=== PATIENT | female | born 1990 | race Hispanic/Latino ===

== ENCOUNTER 2018-03-25 11:39 | Emergency (ER) | payer SELFPAY ==
--- NOTE | 2018-03-25 12:46 | RAD REPORT ---
EXAM DESCRIPTION: RAD - Chest Single View - 03/25/2018 12:38 pm CLINICAL HISTORY: CHEST PAIN Chest pain. COMPARISON: CHEST PA AND LAT 2 VIEW dated 09/03/2011; CHEST SINGLE VIEW dated 03/30/2011; CHEST PA AND L AT 2 VIEW dated 02/12/2010 FINDINGS: Portable technique limits examination quality. The lungs are grossly clear. The heart is normal in size. No displaced fractures. IMPRESSION: No acute intrathoracic process suspected.
[2018-03-25 12:53] LABS: Absolute Lymphocytes (CBC) 1.7 K/uL (0.7-4.9); Absolute Monocytes 0.2 K/uL (0.1-1.3); Absolute Neutrophil 4.1 K/uL (1.8-8.0); Basophils % 1.3 % (0-1.3); Eosinophils % 1.5 % (0-4.4); Hematocrit 40.7 % (36.0-45.0); Lymphocytes % 26.8 % (15.3-44.8); MCH 31.8 pg (27.0-35.0); MCV 93.1 fL (80-100); MPV 8.6 fL (7.6-11.3); Monocytes % 3.8 % (3.3-12.3); RBC Red Blood Cell Count 4.37 M/uL (3.86-4.86)
[2018-03-25 12:59] LABS: Urine Blood NEGATIVE (NEG); Urine Glucose NEGATIVE (NEG); Urine Protein NEGATIVE (NEG); Urine pH 5.5 (5.0-7.0)
[2018-03-25 13:05] LABS: BUN Blood Urea Nitrogen 12 mg/dL (7-18); Bicarbonate 29 mmol/L (21-32); CKMB Creatine Kinase MB < 1.0 ng/mL (0.3-3.6); Creatine Phosphokinase 48 U/L (26-192); Glucose Level 113 mg/dL (74-106); Magnesium 2.1 mg/dL (1.8-2.4); Potassium 3.6 mmol/L (3.5-5.1); Sodium Level 142 mmol/L (136-145)
--- NOTE | 2018-03-25 14:18 | ER ---
Nurse's Notes [facility] Name: Zaria Cleary Age: 27 yrs Sex: Female : 1990 Arrival Date: 03/25/2018 Time: 11:41 Bed 17 Private MD: None, None Diagnosis: Chest pain, unspecified Presentation: 03/25 11:52 Presenting complaint: Patient states: She has been having intermittent chest pain for aj1 the past 5 days. She'll have episodes and then they resolve on their own, so she hasn't done anything about them in the past, but today is the 3rd day in a row she has been having an episode of chest pain so she became concerned. Patient describes her pain as cramping, with pressure. Reports tingling in both of her hands and shortness of breath whenever she has chest pain. Transition of care: patient was not received from another setting of care. Onset of symptoms was March 25, 2018. Risk Assessment: Do you want to hurt yourself or someone else? Patient reports no desire to harm self or others. Initial Sepsis Screen: Does the patient meet any 2 criteria? No. Patient's initial sepsis screen is negative. Does the patient have a suspected source of infection? No. Patient's initial sepsis screen is negative. Care prior to arrival: None. 11:52 Method Of Arrival: Ambulatory aj1 11:52 Acuity: MEL 3 aj1 Triage Assessment: 11:58 General: Appears in no apparent distress. comfortable, Behavior is calm, cooperative, aj1 appropriate for age. Pain: Complains of pain in mid-sternal area Pain does not radiate. Pain currently is 7 out of 10 on a pain scale. Quality of pain is described as crampy, pressure, Is intermittent. Neuro: Level of Consciousness is awake, alert, obeys commands. Cardiovascular: Reports chest pain, shortness of breath, Patient's skin is warm and dry. Respiratory: Airway is patent Respiratory effort is even, unlabored, Respiratory pattern is regular, symmetrical. 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 - Social history:: Smoking status: Patient uses tobacco products, denies chronic smoking, but will smoke occasionally. - Ebola Screening: : Patient denies travel to an Ebola-affected area in the 21 days before illness onset. Screenin:05 Abuse screen: Denies threats or abuse. Nutritional screening: No deficits noted. rb1 Tuberculosis screening: No symptoms or risk factors identified. Fall Risk None identified. Assessment: 12:05 General: Appears distressed, slender, Behavior is anxious, crying, Denies fever. Pain: rb1 Complains of pain in mid-sternal area Pain currently is 7 out of 10 on a pain scale. Pain began x 5 days, the last three days symptoms have gotten worse. Neuro: Level of Consciousness is awake, alert, obeys commands, Oriented to person, place, time, situation. Cardiovascular: Capillary refill < 3 seconds is brisk in bilateral fingers. Respiratory: Airway is patent Respiratory effort is even, unlabored, Respiratory pattern is regular, symmetrical. GI: No signs and/or symptoms were reported involving the gastrointestinal system. : No signs and/or symptoms were reported regarding the genitourinary system. Derm: Skin is dry, Skin is normal, Skin temperature is warm. 13:00 Reassessment: Patient appears in no apparent distress at this time. No changes from rb1 previously documented assessment. 14:00 Reassessment: Patient appears in no apparent distress at this time. Patient and/or rb1 family updated on plan of care and expected duration. Pain level reassessed. Patient is alert, oriented x 3, equal unlabored respirations, skin warm/dry/pink. 14:40 Reassessment: Discharge pending due to shot time. rb1 15:00 Reassessment: Patient appears in no apparent distress at this time. No changes from rb1 previously documented assessment. Vital Signs: 11:58 BP 120 / 93; Pulse 86; Resp 20; Temp 98.4; Pulse Ox 100% on R/A; Height 5 ft. 5 in. aj1 (165.10 cm) (R); 12:30 BP 119 / 80; Pulse 79; Resp 20; Pulse Ox 100% on R/A; rb1 13:30 BP 109 / 69; Pulse 65; Resp 20; Pulse Ox 99% on R/A; rb1 14:30 BP 105 / 66; Pulse 67; Resp 17; Pulse Ox 98% on R/A; rb1 15:00 BP 106 / 67; Pulse 65; Resp 14; Pulse Ox 99% on R/A; rb1 ED Course: 11:41 Patient arrived in ED. sb2 11:41 None, None is Private Physician. sb2 11:58 Triage completed. aj1 11:58 Arm band placed on. aj1 12:01 Aide Ogden FNP-C is [facility]. kb 12:01 Agus Sena MD is Attending Physician. kb 12:05 Patient has correct armband on for positive identification. Placed in gown. Bed in low rb1 position. Call light in reach. Side rails up X 1. customer service consultant on. Pulse ox on. NIBP on. Warm blanket given. 12:05 Patient maintains SpO2 saturation greater than 95% on room air. rb1 12:09 Nimco Alba, RN is Primary Nurse. rb1 12:10 Urine collected: clean catch specimen, clear, yfn colored, Amount Voided: 100mL. jp3 12:14 EKG done, by optical technician. reviewed by Aide VALLES. at1 12:30 Inserted saline lock: 22 gauge in right antecubital area, using aseptic technique. rb1 Blood collected. 12:37 X-ray completed. Portable x-ray completed in exam room. Patient tolerated procedure ka well. 12:38 XRAY Chest (1 view) In Process Unspecified. EDMS 15:00 No provider procedures requiring assistance completed. IV discontinued, intact, rb1 bleeding controlled, No redness/swelling at site. Pressure dressing applied. Administered Medications: 14:40 Drug: TORadol 30 mg Route: IVP; Site: right antecubital; rb1 15:00 Follow up: Response: No adverse reaction; Pain is decreased rb1 14:40 Drug: ProTONIX 40 mg Route: IVP; Site: right antecubital; rb1 15:00 Follow up: Response: No adverse reaction rb1 Outcome: 14:17 Discharge ordered by . kb 15:00 Discharged to home ambulatory, with family. rb1 15:00 Condition: stable 15:00 Discharge instructions given to patient, Instructed on discharge instructions, follow up and referral plans. Demonstrated understanding of instructions, follow-up care, medications, Prescriptions given X none 15:11 Patient left the ED. rb1 Signatures: Dispatcher [employer] EDOK Aide Ogden, COMPUTER ANIMATOR-C COMPUTER ANIMATOR-Ckb Ivana Dawson, RN RN aj1 Gracy Angel, rivet hammer machine operator EKG Tat1 Nimco Alba, RN RN rb1 Radha Ryder Sheri sb2 Kiran Lawson jp3 Corrections: (The following items were deleted from the chart) 15:07 15:07 Reassessment: Patient appears in no apparent distress at this time. No changes rb1 from previously documented assessment. rb1
--- NOTE | 2018-03-25 14:18 | EDPHYS ---
Physician Documentation [facility] Name: Zaria Cleary Age: 27 yrs Sex: Female : 1990 Arrival Date: 03/25/2018 Time: 11:41 Bed 17 Private MD: None, None ED Physician Agus Sena HPI: 03/25 12:32 This 27 yrs old Female presents to ER via Ambulatory with complaints of Chest kb Pain, Chest Tightness. 12:34 The patient or guardian reports chest pain that is located primarily in the chest kb diffusely. The pain does not radiate. Associated signs and symptoms: Pertinent positives: nausea, shortness of breath. The chest pain is described as squeezing, tightness. Duration: The patient or guardian reports multiple episodes. Modifying factors: The symptoms are alleviated by nothing. the symptoms are aggravated by nothing. Severity of pain: At its worst the pain was moderate in the emergency department the pain is unchanged. The patient has experienced similar episodes in the past. The patient has not recently seen a physician. Pt states she has had these symptoms on and off for the last 5 years, but they have been constant for the last 3 days. . 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 - Social history:: Smoking status: Patient uses tobacco products, denies chronic smoking, but will smoke occasionally. - Ebola Screening: : Patient denies travel to an Ebola-affected area in the 21 days before illness onset. ROS: 12:32 Constitutional: Negative for fever, chills, and weight loss, Abdomen/GI: Negative for kb abdominal pain, nausea, vomiting, diarrhea, and constipation, Back: Negative for injury and pain, : Negative for injury, bleeding, discharge, and swelling, MS/Extremity: Negative for injury and deformity, Skin: Negative for injury, rash, and discoloration, Neuro: Negative for headache, weakness, numbness, tingling, and seizure. 12:32 Cardiovascular: Positive for chest pain, Negative for edema, orthopnea, palpitations, paroxysmal nocturnal dyspnea. 12:32 Respiratory: Positive for shortness of breath, Negative for cough, dyspnea on exertion, hemoptysis, orthopnea, pleurisy, sputum production, wheezing. Exam: 12:32 Head/Face: Normocephalic, atraumatic. Chest/axilla: Normal chest wall appearance and kb motion. Nontender with no deformity. No lesions are appreciated. Cardiovascular: Regular rate and rhythm with a normal S1 and S2. No gallops, murmurs, or rubs. Normal PMI, no JVD. No pulse deficits. Respiratory: Lungs have equal breath sounds bilaterally, clear to auscultation and percussion. No rales, rhonchi or wheezes noted. No increased work of breathing, no retractions or nasal flaring. Abdomen/GI: Soft, non-tender, with normal bowel sounds. No distension or tympany. No guarding or rebound. No evidence of tenderness throughout. Skin: Warm, dry with normal turgor. Normal color with no rashes, no lesions, and no evidence of cellulitis. MS/ Extremity: Pulses equal, no cyanosis. Neurovascular intact. Full, normal range of motion. Neuro: Awake and alert, GCS 15, oriented to person, place, time, and situation. Cranial nerves II-XII grossly intact. Motor strength 5/5 in all extremities. Sensory grossly intact. Cerebellar exam normal. Normal gait. 12:32 Constitutional: The patient appears alert, awake, tearful Vital Signs: 11:58 BP 120 / 93; Pulse 86; Resp 20; Temp 98.4; Pulse Ox 100% on R/A; Height 5 ft. 5 in. aj1 (165.10 cm) (R); 12:30 BP 119 / 80; Pulse 79; Resp 20; Pulse Ox 100% on R/A; rb1 13:30 BP 109 / 69; Pulse 65; Resp 20; Pulse Ox 99% on R/A; rb1 14:30 BP 105 / 66; Pulse 67; Resp 17; Pulse Ox 98% on R/A; rb1 15:00 BP 106 / 67; Pulse 65; Resp 14; Pulse Ox 99% on R/A; rb1 MDM: 12:05 Patient medically screened. kb 12:32 Data reviewed: vital signs, nurses notes. Data interpreted: Pulse oximetry: on room air kb is 100 %. Interpretation: normal. 14:17 Counseling: I had a detailed discussion with the patient and/or guardian regarding: the kb historical points, exam findings, and any diagnostic results supporting the discharge/admit diagnosis, lab results, radiology results, the need for outpatient follow up, a family practitioner, to return to the emergency department if symptoms worsen or persist or if there are any questions or concerns that arise at home. 03/25 12:17 Order name: Ckmb; Complete Time: 13:11 kb 03/25 12:17 Order name: CPK; Complete Time: 13:11 kb 03/25 12:17 Order name: Basic Metabolic Panel; Complete Time: 13:11 kb 03/25 12:17 Order name: CBC with Diff; Complete Time: 12:54 kb 03/25 12:17 Order name: Magnesium; Complete Time: 13:11 kb 03/25 12:17 Order name: Troponin (emerg Dept Use Only); Complete Time: 13:11 kb 03/25 12:17 Order name: Urine Test (obtain specimen); Complete Time: 14:35 kb 03/25 12:17 Order name: XRAY Chest (1 view); Complete Time: 12:48 kb 03/25 12:17 Order name: EKG; Complete Time: 12:18 kb 03/25 12:17 Order name: D-Dimer; Complete Time: 13:11 kb 03/25 12:21 Order name: Urine Dipstick--Ancillary (enter results); Complete Time: 13:11 eb 03/25 12:21 Order name: Urine --Ancillary (enter results); Complete Time: 13:11 eb 03/25 12:17 Order name: Cardiac monitoring; Complete Time: 14:34 kb 03/25 12:17 Order name: EKG - Nurse/Tech; Complete Time: 14:34 kb 03/25 12:17 Order name: IV Saline Lock; Complete Time: 14:34 kb 03/25 12:17 Order name: Labs collected and sent; Complete Time: 14:34 kb 03/25 12:17 Order name: O2 Per Protocol; Complete Time: 14:34 kb 03/25 12:17 Order name: O2 Sat Monitoring; Complete Time: 14:34 kb 03/25 12:17 Order name: Urine Dipstick-Ancillary (obtain specimen); Complete Time: 14:35 kb Administered Medications: 14:40 Drug: TORadol 30 mg Route: IVP; Site: right antecubital; rb1 15:00 Follow up: Response: No adverse reaction; Pain is decreased rb1 14:40 Drug: ProTONIX 40 mg Route: IVP; Site: right antecubital; rb1 15:00 Follow up: Response: No adverse reaction rb1 Disposition: 16:51 Co-signature as Attending Physician, Agus Sena MD. rn Disposition: 03/25/18 14:17 Discharged to Home. Impression: Chest pain, unspecified. - Condition is Stable. - Discharge Instructions: Nonspecific Chest Pain, [id number]. - Medication Reconciliation Form, Thank You Letter, Antibiotic Education, Prescription Opioid Use, Work release form form. - Follow up: Emergency Department; When: As needed; Reason: Worsening of condition. Follow up: Private Physician; When: 2 - 3 days; Reason: Recheck today's complaints, Continuance of care, Re-evaluation by your physician. Signatures: Dispatcher [employer] EDTN Aide Ogden, JUNIOR AUTOMATION ENGINEER-C JUNIOR AUTOMATION ENGINEER-Ckb Ivana Dawson RN RN aj1 Agus Sena MD MD rn Barber, Rebecca, RN RN rb1 Corrections: (The following items were deleted from the chart) 15:11 14:17 03/25/2018 14:17 Discharged to Home. Impression: Chest pain, unspecified. rb1 Condition is Stable. Forms are Medication Reconciliation Form, Thank You Letter, Antibiotic Education, Prescription Opioid Use. Follow up: Emergency Department; When: As needed; Reason: Worsening of condition. Follow up: Private Physician; When: 2 - 3 days; Reason: Recheck today's complaints, Continuance of care, Re-evaluation by your physician. kb
[2018-03-25] MEDS ORDERED: PANTOPRAZOLE 40 MG INJ ONE (14:41)
[2018-03-25] MEDS ORDERED: KETOROLAC 30 MG/ML INJ ONE (14:41)
[2018-03-25 15:20] VITALS: TEMP 98.4
[2018-03-25 15:25] VITALS: BP 106/67; O2SAT 99
--- NOTE | 2018-03-25 16:28 | EKG ---
Test Date: 2018-03-25 Test Time: 12:09:04 Social Security Benefits Interviewer: SHERLYN MEASUREMENT RESULTS: Intervals: Rate: 83 HI: 136 QRSD: 84 QT: 356 QTc: 418 [place]: P: 83 HI: 136 QRS: 88 T: 48 INTERPRETIVE STATEMENTS: Normal sinus rhythm with sinus arrhythmia Nonspecific ST abnormality Abnormal ECG No previous ECG available for comparison Electronically Signed On 03-25-18 16:26:00 CDT by Kash Laurent
== END 2018-03-25 15:11 | disposition home or self-care (01) ==
LOC: ER 11:39
DX: R07.9 Chest pain, unspecified (principal); Z72.0 Tobacco use
CPT/HCPCS: 36415; 71045; 80048; 81003; 81025; 82550; 82553; 83735; 84484; 85025; 85379; 93005; 96374; 96375; 99285; C9113

== ENCOUNTER 2018-07-23 22:13 | Emergency (ER) | payer BC, SELFPAY ==
--- OUTSIDE RECORDS SUMMARY | 2018-07-23 22:16 | XMS REPORT ---
:1990 [facility] Address [address] [place] [address] Care Team Providers Name Role Phone Unavailable Unavailable Unavailable Problems This patient has no known problems. Allergies, Adverse Reactions, Alerts This patient has no known allergies or adverse reactions. Medications This patient has no known medications.
[2018-07-23 23:33] LABS: Absolute Lymphocytes (CBC) 2.2 K/uL (0.7-4.9); Absolute Monocytes 0.6 K/uL (0.1-1.3); Absolute Neutrophil 6.5 K/uL (1.8-8.0); Eosinophils % 1.8 % (0-4.4); Hematocrit 40.5 % (36.0-45.0); Lymphocytes % 23.3 % (15.3-44.8); MPV 8.7 fL (7.6-11.3); Monocytes % 6.7 % (3.3-12.3); RBC Red Blood Cell Count 4.35 M/uL (3.86-4.86)
[2018-07-24 00:04] LABS: BUN Blood Urea Nitrogen 9 mg/dL (7-18); Bicarbonate 25 mmol/L (21-32); Glucose Level 88 mg/dL (74-106); HCG, Quantitative 16647 mIU/mL (1-3); Potassium 3.9 mmol/L (3.5-5.1); Sodium Level 136 mmol/L (136-145)
[2018-07-24 00:26] LABS: Urine Blood 3+ (NEG); Urine Glucose NEGATIVE (NEG); Urine Protein NEGATIVE (NEG); Urine Specific Gravity >1.030 (1.005-1.030); Urine pH 5.5 (5.0-7.0)
--- NOTE | 2018-07-24 01:15 | EDPHYS ---
Physician Documentation [facility] Name: Zaria Cleary Age: 27 yrs Sex: Female : 1990 Arrival Date: 07/23/2018 Time: 22:19 Bed 4 Private MD: ED Physician Dylan Matthews HPI: 07/24 00:22 This 27 yrs old Female presents to ER via Ambulatory with complaints of jr8 Vaginal Bleeding. 00:22 The patient presents with vaginal bleeding that is moderate, with clots. Onset: The jr8 symptoms/episode began/occurred acutely, yesterday. Modifying factors: The symptoms are alleviated by nothing, the symptoms are aggravated by nothing. Associated signs and symptoms: The patient has no apparent associated signs or symptoms. Severity of symptoms: At their worst the symptoms were mild, in the emergency department the symptoms are unchanged. The patient is sexually active, reportedly has a single partner, does not use protection during intercourse. The patient's method of control includes nothing. The patient has not experienced similar symptoms in the past. The patient has not recently seen a physician. Patient stated that she had missed her period and is about two weeks late. Now having heavy menstrual cycle with clots. Stated that it is not normally this heavy. Denies any other symptoms . 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 - Social history:: Smoking status: Patient/guardian denies using tobacco. - Ebola Screening: : No symptoms or risks identified at this time. ROS: 07/24 00:22 Eyes: Negative for injury, pain, redness, and discharge, ENT: Negative for injury, jr8 pain, and discharge, Neck: Negative for injury, pain, and swelling, Cardiovascular: Negative for chest pain, palpitations, and edema, Respiratory: Negative for shortness of breath, cough, wheezing, and pleuritic chest pain, Abdomen/GI: Negative for abdominal pain, nausea, vomiting, diarrhea, and constipation, Back: Negative for injury and pain, MS/Extremity: Negative for injury and deformity, Skin: Negative for injury, rash, and discoloration, Neuro: Negative for headache, weakness, numbness, tingling, and seizure. : Positive for vaginal bleeding, menstrual abnormality, missed period. Exam: 00:22 Eyes: Pupils equal round and reactive to light, extra-ocular motions intact. Lids and jr8 lashes normal. Conjunctiva and sclera are non-icteric and not injected. Cornea within normal limits. Periorbital areas with no swelling, redness, or edema. ENT: Nares patent. No nasal discharge, no septal abnormalities noted. Tympanic membranes are normal and external auditory canals are clear. Oropharynx with no redness, swelling, or masses, exudates, or evidence of obstruction, uvula midline. Mucous membranes moist. Neck: Trachea midline, no thyromegaly or masses palpated, and no cervical lymphadenopathy. Supple, full range of motion without nuchal rigidity, or vertebral point tenderness. No Meningismus. Cardiovascular: Regular rate and rhythm with a normal S1 and S2. No gallops, murmurs, or rubs. Normal PMI, no JVD. No pulse deficits. Respiratory: Lungs have equal breath sounds bilaterally, clear to auscultation and percussion. No rales, rhonchi or wheezes noted. No increased work of breathing, no retractions or nasal flaring. Abdomen/GI: Soft, non-tender, with normal bowel sounds. No distension or tympany. No guarding or rebound. No evidence of tenderness throughout. Back: No spinal tenderness. No costovertebral tenderness. Full range of motion. Skin: Warm, dry with normal turgor. Normal color with no rashes, no lesions, and no evidence of cellulitis. MS/ Extremity: Pulses equal, no cyanosis. Neurovascular intact. Full, normal range of motion. Neuro: Awake and alert, GCS 15, oriented to person, place, time, and situation. Cranial nerves II-XII grossly intact. Motor strength 5/5 in all extremities. Sensory grossly intact. Cerebellar exam normal. Normal gait. Vital Signs: 07/23 22:52 BP 127 / 88; Pulse 80; Resp 16; Temp 98.3(O); Pulse Ox 100% on R/A; Weight 61.23 kg; tl2 Height 5 ft. 6 in. (167.64 cm); Pain 4/10; 07/24 00:53 BP 117 / 82; Pulse 72; Resp 18; Pulse Ox 100% on R/A; tl2 07/23 22:52 Body Mass Index 21.79 (61.23 kg, 167.64 cm) 2 MDM: 07/23 22:31 Patient medically screened. [facility] 07/24 01:13 Data reviewed: vital signs, nurses notes, lab test result(s), radiologic studies, [facility] ultrasound. Data interpreted: Pulse oximetry: on room air is 100 %. Interpretation: normal. Counseling: I had a detailed discussion with the patient and/or guardian regarding: the historical points, exam findings, and any diagnostic results supporting the discharge/admit diagnosis, lab results, radiology results, the need for outpatient follow up, an OB/Gyne specialist, to return to the emergency department if symptoms worsen or persist or if there are any questions or concerns that arise at home. 07/23 22:38 Order name: Urine Dipstick--Ancillary (enter results); Complete Time: 00:29 [facility] 07/23 22:38 Order name: Urine --Ancillary (enter results); Complete Time: 00:29 [facility] 07/23 22:42 Order name: Quantitative Hcg; Complete Time: 00:10 [facility] 07/23 22:42 Order name: Abo/rh Typing; Complete Time: 00:10 [facility] 07/23 22:42 Order name: Basic Metabolic Panel; Complete Time: 00:10 [facility] 07/23 22:42 Order name: CBC with Diff; Complete Time: 23:51 [facility] 07/23 22:29 Order name: Urine Test (obtain specimen); Complete Time: 22:36 [facility] 07/23 22:29 Order name: Urine Dipstick-Ancillary (obtain specimen); Complete Time: 22:36 [facility] 07/23 22:42 Order name: IV Saline Lock; Complete Time: 23:01 [facility] 07/23 22:42 Order name: Labs collected and sent; Complete Time: 23:01 [facility] 07/23 22:42 Order name: NPO; Complete Time: 23:02 [facility] 07/23 22:42 Order name: Urine Dipstick-Ancillary (obtain specimen); Complete Time: 22:45 [facility] 07/24 00:11 Order name: Transvaginal OB jr8 Administered Medications: No medications were administered Disposition: 06:44 Co-signature as Attending Physician, Dylan Matthews MD I agree with the assessment and kdr plan of care. Disposition: 07/24/18 01:14 Discharged to Home. Impression: Threatened . - Condition is Stable. - Discharge Instructions: Threatened Miscarriage, Vaginal Bleeding During , First Trimester, Pelvic Rest. - Medication Reconciliation Form, Thank You Letter, Antibiotic Education, Prescription Opioid Use form. - Follow up: Private Physician; When: 2 - 3 days; Reason: If symptoms return, Recheck today's complaints, Continuance of care, Re-evaluation by your physician. - Problem is new. - Symptoms have improved. Signatures: Dispatcher [employer] EDWV Dylan Matthews MD MD kdr Kelly Reina RN RN lp1 Higinio Cutler PA PA jr8 Ryann Hunter RN RN tl2 Corrections: (The following items were deleted from the chart) 01:44 01:14 07/24/2018 01:14 Discharged to Home. Impression: Threatened . Condition lp1 is Stable. Forms are Medication Reconciliation Form, Thank You Letter, Antibiotic Education, Prescription Opioid Use. Follow up: Private Physician; When: 2 - 3 days; Reason: If symptoms return, Recheck today's complaints, Continuance of care, Re-evaluation by your physician. Problem is new. Symptoms have improved. jr8
--- NOTE | 2018-07-24 01:15 | ER ---
Nurse's Notes [facility] Name: Zaria Cleary Age: 27 yrs Sex: Female : 1990 Arrival Date: 07/23/2018 Time: 22:19 Bed 4 Private MD: Diagnosis: Threatened Presentation: 07/23 22:49 Presenting complaint: Patient states: Started having heavy vaginal bleeding started tl2 today around 4:00 pm. Pt LMP was 06/11 and pt has yet to start period for this month. Reports mild abdominal cramping. Transition of care: patient was not received from another setting of care. Onset of symptoms was July 23, 2018 at 16:00. Risk Assessment: Do you want to hurt yourself or someone else? Patient reports no desire to harm self or others. Initial Sepsis Screen: Does the patient meet any 2 criteria? No. Patient's initial sepsis screen is negative. Does the patient have a suspected source of infection? No. Patient's initial sepsis screen is negative. Care prior to arrival: None. 22:49 Method Of Arrival: Ambulatory tl2 22:49 Acuity: MEL 3 tl2 Triage Assessment: 22:52 General: Appears in no apparent distress. uncomfortable, Behavior is calm, cooperative, tl2 appropriate for age. Pain: Complains of pain in suprapubic area. Neuro: Level of Consciousness is awake, alert, obeys commands, Oriented to person, place, time, situation. Cardiovascular: Denies chest pain. Respiratory: Airway is patent Respiratory effort is even, unlabored, Respiratory pattern is regular, symmetrical. : Reports vaginal bleeding that is bright red, with clots, heavy flow. Derm: Skin is pink, warm \T\ dry. 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 - Social history:: Smoking status: Patient/guardian denies using tobacco. - Ebola Screening: : No symptoms or risks identified at this time. Screenin:54 Abuse screen: Denies threats or abuse. Nutritional screening: No deficits noted. tl2 Tuberculosis screening: No symptoms or risk factors identified. Fall Risk None identified. Assessment: 22:52 General: see triage assessment. tl2 07/24 00:54 Reassessment: Patient appears in no apparent distress at this time. Patient and/or tl2 family updated on plan of care and expected duration. Pain level reassessed. Patient is alert, oriented x 3, equal unlabored respirations, skin warm/dry/pink. Vital Signs: 07/23 22:52 BP 127 / 88; Pulse 80; Resp 16; Temp 98.3(O); Pulse Ox 100% on R/A; Weight 61.23 kg; tl2 Height 5 ft. 6 in. (167.64 cm); Pain 4/10; 07/24 00:53 BP 117 / 82; Pulse 72; Resp 18; Pulse Ox 100% on R/A; tl2 07/23 22:52 Body Mass Index 21.79 (61.23 kg, 167.64 cm) tl2 ED Course: 07/23 22:19 Patient arrived in ED. es 22:30 Kelly Reina, RN is Primary Nurse. lp1 22:31 Higinio Cutler PA is PHCP. jr8 22:31 Dylan Matthews MD is Attending Physician. jr8 22:52 Triage completed. tl2 22:52 Arm band placed on right wrist. tl2 23:08 Inserted saline lock: 20 gauge in right antecubital area, using aseptic technique. oe Blood collected. 07/24 01:13 Transvaginal OB US In Process Unspecified. EDMS 01:43 Patient has correct armband on for positive identification. lp1 01:43 No provider procedures requiring assistance completed. IV discontinued, No lp1 redness/swelling at site. Pressure dressing applied. Administered Medications: No medications were administered Outcome: 01:14 Discharge ordered by . jr8 01:44 Discharged to home ambulatory, with friend. lp1 01:44 Condition: good 01:44 Discharge instructions given to patient, Instructed on discharge instructions, follow up and referral plans. Demonstrated understanding of instructions, follow-up care. 01:44 Patient left the ED. lp1 Signatures: Dispatcher [employer] EDOH Khadijah Reilly Laura, RN RN lp1 Higinio Cutler PA PA jr8 Ryann Hunter, RN RN tl2 Duy Gusman
[2018-07-24 02:32] VITALS: TEMP 98.3; O2SAT 100
[2018-07-24 02:33] VITALS: BP 117/82
--- NOTE | 2018-07-24 09:43 | RAD REPORT ---
EXAM DESCRIPTION: US - Transvaginal OB - 07/24/2018 1:13 am CLINICAL HISTORY: Abdominal pain, vaginal bleeding, COMPARISON: None. FINDINGS: A single normal shaped intrauterine gestational sac is identified with yolk sac and pole. No intrauterine hematoma or mass. Heart rate of 117 BPM detected. [place]-rump length corresponds to a 6 week 1 day age. Calculated AUGUSTINE is 03/18/2019. Cervical canal is closed. No suspicious ovarian or adnexal finding. Minimal right ovarian cyst is present. No blood or fluid in the cul de sac. IMPRESSION: Single 6 week 1 day IUP within normal gestational sac. No significant or suspicious adnexal finding.
== END 2018-07-24 01:44 | disposition home or self-care (01) ==
LOC: ER 22:13
DX: O20.0 Threatened abortion (principal); Z3A.01 Less than 8 weeks gestation of pregnancy
CPT/HCPCS: 36415; 76817; 80048; 81003; 81025; 84702; 85025; 86900; 86901; 99283

== ENCOUNTER 2018-10-28 18:51 | Emergency (ER) | payer OTHER, SELFPAY ==
--- OUTSIDE RECORDS SUMMARY | 2018-10-28 18:53 | XMS REPORT ---
:1990 [facility] Address [address] [place] [address] Care Team Providers Name Role Phone Unavailable Unavailable Unavailable Problems This patient has no known problems. Allergies, Adverse Reactions, Alerts This patient has no known allergies or adverse reactions. Medications This patient has no known medications.
[2018-10-28 20:53] LABS: Urine RBC <5 /HPF (NONE SEEN)
[2018-10-28 20:54] LABS: Urine Blood NEGATIVE (NEG); Urine Glucose NEGATIVE (NEG); Urine Protein NEGATIVE (NEG)
[2018-10-28 20:54] LABS: Urine Bacteria 20-50 /HPF (<20); Urine Culture Reflex Order REFLEXED; Urine Mucus 1+ /HPF (NONE SEEN)
[2018-10-28] MEDS ORDERED: ACETAMINOPHEN 500 MG TAB ONE (22:11)
[2018-10-28] MEDS ORDERED: CEFTRIAXONE/SWI 1gm 1 GM/10 ML SYR ONE (22:12)
--- NOTE | 2018-10-28 22:43 | EDPHYS ---
Physician Documentation [facility] Name: Zaria Cleary Age: 28 yrs Sex: Female : 1990 Arrival Date: 10/28/2018 Time: 18:56 Bed 19 Private MD: None, None ED Physician Nichole Sanchez HPI: 10/28 22:19 This 28 yrs old Female presents to ER via Ambulatory with complaints of Passed ma2 Out Prior To Arrival, Dizziness, 19 wks. 22:19 The patient has experienced near-syncope. Onset: The symptoms/episode began/occurred ma2 suddenly, 2 hour(s) ago. Context: has migraine headache on off for years today with usual headache has near syncope while standing no fall, has no weakness no chest pain no family hx of drowning or syncope no chest pain . Associated signs and symptoms: Pertinent negatives: agitation, blurred vision, chest pain, diaphoresis, diarrhea, dizziness. The patient has experienced similar episodes in the past. 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 - Social history:: Smoking status: Patient/guardian denies using tobacco, Patient/guardian denies using alcohol, street drugs, The patient lives with family. - Ebola Screening: : Patient negative for fever greater than or equal to 101.5 degrees Fahrenheit, and additional compatible Ebola Virus Disease symptoms. - Family history:: not pertinent. ROS: 22:19 Constitutional: Negative for fever, chills, and weight loss, Cardiovascular: Negative ma2 for chest pain, palpitations, and edema, Respiratory: Negative for shortness of breath, cough, wheezing, and pleuritic chest pain. 22:19 Cardiovascular: Positive for near syncope. 22:19 All other systems are negative. Exam: 22:19 Abdomen/GI: Inspection: abdomen appears normal, gravid appearance, is noted, Bowel ma2 sounds: normal, Palpation: soft. 22:19 Constitutional: This is a well developed, well nourished patient who is awake, alert, and in no acute distress. Head/Face: Normocephalic, atraumatic. Eyes: Pupils equal round and reactive to light, extra-ocular motions intact. Lids and lashes normal. Conjunctiva and sclera are non-icteric and not injected. Cornea within normal limits. Periorbital areas with no swelling, redness, or edema. ENT: Nares patent. No nasal discharge, no septal abnormalities noted. Tympanic membranes are normal and external auditory canals are clear. Oropharynx with no redness, swelling, or masses, exudates, or evidence of obstruction, uvula midline. Mucous membranes moist. Neck: Trachea midline, no thyromegaly or masses palpated, and no cervical lymphadenopathy. Supple, full range of motion without nuchal rigidity, or vertebral point tenderness. No Meningismus. Chest/axilla: Normal chest wall appearance and motion. Nontender with no deformity. No lesions are appreciated. Cardiovascular: Regular rate and rhythm with a normal S1 and S2. No gallops, murmurs, or rubs. Normal PMI, no JVD. No pulse deficits. Respiratory: Lungs have equal breath sounds bilaterally, clear to auscultation and percussion. No rales, rhonchi or wheezes noted. No increased work of breathing, no retractions or nasal flaring. Abdomen/GI: Soft, non-tender, with normal bowel sounds. No distension or tympany. No guarding or rebound. No evidence of tenderness throughout. Back: No spinal tenderness. No costovertebral tenderness. Full range of motion. Skin: Warm, dry with normal turgor. Normal color with no rashes, no lesions, and no evidence of cellulitis. MS/ Extremity: Pulses equal, no cyanosis. Neurovascular intact. Full, normal range of motion. Neuro: Awake and alert, GCS 15, oriented to person, place, time, and situation. Cranial nerves II-XII grossly intact. Motor strength 5/5 in all extremities. Sensory grossly intact. Cerebellar exam normal. Normal gait. Vital Signs: 19:17 BP 116 / 92; Pulse 101; Resp 17 S; Temp 98.2(O); Pulse Ox 98% on R/A; Weight 68.04 kg jd3 (R); Height 5 ft. 5 in. (165.10 cm) (R); Pain 7/10; 20:33 BP 116 / 83; Pulse 100; Resp 20; Pulse Ox 100% on R/A; Pain 7/10; ed1 20:59 BP 112 / 73 LA Supine (auto/reg); Pulse 83; ed1 21:00 BP 116 / 71 LA Sitting (auto/reg); Pulse 84; ed1 21:00 BP 112 / 73 LA Standing (auto/reg); Pulse 94; ed1 22:05 BP 114 / 83; Pulse 92; Resp 19; Pulse Ox 100% on R/A; Pain 6/10; ed1 19:17 Body Mass Index 24.96 (68.04 kg, 165.10 cm) jd3 MDM: 20:38 Patient medically screened. ma2 22:19 Differential Diagnosis: emotional response, , vasovagal episode. Data ma2 reviewed: vital signs, nurses notes. Counseling: I had a detailed discussion with the patient and/or guardian regarding: the historical points, exam findings, and any diagnostic results supporting the discharge/admit diagnosis, the presence of at least one elevated blood pressure reading (>120/80) during this emergency department visit, the need for outpatient follow up. Counseling: I had a detailed discussion with the patient and/or guardian regarding: the presence of at least one elevated blood pressure reading (>120/80) during this emergency department visit. Response to treatment:. ED course: ekg with no long qt brugada or [id number] or ischemic changes, workup unremarkable except bacteruria, low risk syncope per kirkland milagro rule . 10/28 19:32 Order name: Urine Microscopic Only; Complete Time: 20:58 [facility] 10/28 20:44 Order name: Urine Dipstick--Ancillary (enter results); Complete Time: 20:58 ed1 10/28 20:44 Order name: Urine --Ancillary (enter results); Complete Time: 20:58 1 10/28 20:55 Order name: Urine Culture [facility] 10/28 20:59 Order name: HCG-Quantitative; Complete Time: 22:39 [facility] 10/28 20:59 Order name: Type And Screen; Complete Time: 22:39 [facility] 10/28 19:32 Order name: Urine Test (obtain specimen); Complete Time: 20:43 [facility] 10/28 19:32 Order name: Urine Dipstick-Ancillary (obtain specimen); Complete Time: 20:43 sn[facility] 10/28 20:38 Order name: EKG - Nurse/Tech; Complete Time: 21:02 ma2 10/28 21:59 Order name: OB Complete EDKY 10/28 20:38 Order name: Orthostatics; Complete Time: 21:02 ma2 Administered Medications: 22:05 Drug: Rocephin 1 grams Route: IV; Rate: 1 calculated rate; Site: right antecubital; ed1 22:20 Follow up: Response: No adverse reaction; IV Status: Completed infusion; IV Intake: [id number] 22:05 Drug: Tylenol 500 mg Route: PO; ed1 22:47 Follow up: Response: No adverse reaction ed1 Disposition: 10/28/18 22:42 Discharged to Home. Impression: Syncope and collapse. - Condition is Stable. - Discharge Instructions: Syncope. - Prescriptions for Augmentin 875- 125 mg Oral Tablet - take 1 tablet by ORAL route every 12 hours for 7 days; 20 tablet. - Medication Reconciliation Form, Thank You Letter, Antibiotic Education, Prescription Opioid Use form. - Follow up: Private Physician; When: Tomorrow; Reason: Continuance of care. Signatures: Dispatcher [employer] [facility] Dana Munoz, ACTIVITIES DIRECTOR SCOUTING-C ACTIVITIES DIRECTOR SCOUTING-Csnw Marie Fisher RN RN ed1 Jun Suggs RN RN jNichole Duran MD MD ma2 Corrections: (The following items were deleted from the chart) 21:35 21:00 OB Complete+US.RAD.BRZ ordered. EDKY EDMS 21:59 21:35 Transvaginal OB ordered. EDKY EDMS 22:48 22:42 10/28/2018 22:42 Discharged to Home. Impression: Syncope and collapse. Condition ed1 is Stable. Prescriptions for Augmentin 875-125 mg Oral Tablet - take 1 tablet by ORAL route every 12 hours for 7 days; 20 tablet. and Forms are Medication Reconciliation Form, Thank You Letter, Antibiotic Education, Prescription Opioid Use. Follow up: Private Physician; When: Tomorrow; Reason: Continuance of care. ma2
--- NOTE | 2018-10-28 22:43 | ER ---
Nurse's Notes [facility] Name: Zaria Cleary Age: 28 yrs Sex: Female : 1990 Arrival Date: 10/28/2018 Time: 18:56 Bed 19 Private MD: None, None Diagnosis: Syncope and collapse Presentation: 10/28 19:14 Presenting complaint: Patient states: "[facility] and felt jd3 faint. next thing I remember they were helping me off the floor. I'm not hurting anywhere, but I'm nauseous.". Transition of care: patient was not received from another setting of care. Onset of symptoms was October 28, 2018. Risk Assessment: Do you want to hurt yourself or someone else? Patient reports no desire to harm self or others. Initial Sepsis Screen: Does the patient meet any 2 criteria? No. Patient's initial sepsis screen is negative. Does the patient have a suspected source of infection? No. Patient's initial sepsis screen is negative. Care prior to arrival: None. 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 - Social history:: Smoking status: Patient/guardian denies using tobacco, Patient/guardian denies using alcohol, street drugs, The patient lives with family. - Ebola Screening: : Patient negative for fever greater than or equal to 101.5 degrees Fahrenheit, and additional compatible Ebola Virus Disease symptoms. - Family history:: not pertinent. Screenin:33 Abuse screen: Denies threats or abuse. Denies injuries from another. Nutritional ed1 screening: No deficits noted. Tuberculosis screening: No symptoms or risk factors identified. Fall Risk None identified. Assessment: 20:33 General: Appears uncomfortable, Behavior is calm, cooperative. Pain: Complains of pain ed1 in head Pain does not radiate. Pain currently is 7 out of 10 on a pain scale. Quality of pain is described as throbbing, Pain began 2 hours ago. Is continuous. 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 Full function Gait is steady, Speech is normal, Facial symmetry appears normal, Pupils are PERRLA, Intact Reports blurred vision dizziness, headache a syncopal episode. Cardiovascular: Denies chest pain, Heart tones S1 S2 present. Respiratory: Airway is patent Respiratory effort is even, unlabored, Respiratory pattern is regular, symmetrical, Breath sounds are clear bilaterally. GI: Reports nausea, Patient currently denies diarrhea, vomiting. : Denies burning with urination, urinary frequency, vaginal bleeding. EENT: No signs and/or symptoms were reported regarding the EENT system. Derm: Skin is intact, is healthy with good turgor, Skin is dry, Skin is normal, Skin temperature is warm. Musculoskeletal: Circulation, motion, and sensation intact. Range of motion: intact in all extremities. 22:05 Reassessment: Patient appears in no apparent distress at this time. No changes from ed1 previously documented assessment. Patient and/or family updated on plan of care and expected duration. Pain level reassessed. Patient is alert, oriented x 3, equal unlabored respirations, skin warm/dry/pink. Patient states symptoms have not improved. Vital Signs: 19:17 BP 116 / 92; Pulse 101; Resp 17 S; Temp 98.2(O); Pulse Ox 98% on R/A; Weight 68.04 kg jd3 (R); Height 5 ft. 5 in. (165.10 cm) (R); Pain 7/10; 20:33 BP 116 / 83; Pulse 100; Resp 20; Pulse Ox 100% on R/A; Pain 7/10; ed1 20:59 BP 112 / 73 LA Supine (auto/reg); Pulse 83; ed1 21:00 BP 116 / 71 LA Sitting (auto/reg); Pulse 84; ed1 21:00 BP 112 / 73 LA Standing (auto/reg); Pulse 94; ed1 22:05 BP 114 / 83; Pulse 92; Resp 19; Pulse Ox 100% on R/A; Pain 6/10; ed1 19:17 Body Mass Index 24.96 (68.04 kg, 165.10 cm) jd3 Vitals: 21:00 Heart Tones 162. ed1 ED Course: 18:56 Patient arrived in ED. mr 18:57 None, None is Private Physician. mr 19:16 Triage completed. jd3 19:17 Arm band placed on Patient notified of wait time. jd3 20:24 Marie Fisher, RN is Primary Nurse. ed1 20:33 Resting quietly. Awaiting ED provider evaluation. ed1 20:33 Patient has correct armband on for positive identification. Placed in gown. Bed in low ed1 position. Call light in reach. Side rails up X 1. Adult w/ patient. Pulse ox on. NIBP on. Warm blanket given. 20:38 Nichole Sanchez MD is Attending Physician. ma2 21:01 EKG done, by ED staff, reviewed by Nichole Sanchez MD. ed1 21:22 Initial lab(s) drawn, by in, sent to lab. T\\T\\S collected, blood band applied to patient. ed1 Inserted saline lock: 20 gauge in right antecubital area, using aseptic technique. Blood collected. 22:00 OB Complete In Process Unspecified. EDMS 22:38 Removal of peripheral IV. Catheter intact, dressing applied. ag4 22:46 No provider procedures requiring assistance completed. IV discontinued, intact, ed1 bleeding controlled, No redness/swelling at site. Pressure dressing applied. Administered Medications: 22:05 Drug: Rocephin 1 grams Route: IV; Rate: 1 calculated rate; Site: right antecubital; ed1 22:20 Follow up: Response: No adverse reaction; IV Status: Completed infusion; IV Intake: [id number] 22:05 Drug: Tylenol 500 mg Route: PO; ed1 22:47 Follow up: Response: No adverse reaction ed1 Intake: 22:20 IV: 10ml; Total: 10ml. ed1 Outcome: 22:42 Discharge ordered by . ma2 22:46 Discharged to home ambulatory, with friend. ed1 22:46 Condition: good 22:46 Discharge instructions given to patient, Instructed on discharge instructions, follow up and referral plans. medication usage, Demonstrated understanding of instructions, follow-up care, medications, Prescriptions given X 1. 22:48 Patient left the ED. ed1 Signatures: Dispatcher [employer] EDTN Torres, Rosalba FisherMarie, RN RN ed1 Jun Suggs RN RN jd3 Nichole Sanchez MD MD ma2 Gregory Crowley ag4 Corrections: (The following items were deleted from the chart) 19:18 19:17 Arm band placed on jd3 jd3 21:59 21:58 In radiology for Transvaginal OB. EDMS EDMS
[2018-10-28 23:14] VITALS: TEMP 98.2
[2018-10-28 23:15] VITALS: O2SAT 100
[2018-10-28 23:19] VITALS: BP 114/83
--- NOTE | 2018-10-29 09:13 | RAD REPORT ---
EXAM DESCRIPTION: US - OB Complete - 10/28/2018 9:59 pm CLINICAL HISTORY: Fall. COMPARISON: None. FINDINGS: A single live intrauterine is in breech presentation. The placenta is posterior. A subchorionic/retroplacental bleed is not noted. A four-chamber heart is not clearly seen. Intracranial structures and spine appear unremarkable. Cord insertion is normal. Fluid is present sto mach and bladder. The kidneys appear unremarkable. Amniotic fluid is within normal limits. Cardiac activity 136 beats per minute. BPD 4.7 centimeters 20 weeks 2 days states. HC 17.6 centimeters 20 weeks 1 day. HC 16 centimeters 21 weeks 1 day. FL 3.2 centimeters 20 weeks 0 days. Estimated weight 362 grams. Right and left adnexa are unremarkable. Cervix 3.3 centimeters. survey demonstrates no gross abnormality. IMPRESSION: 1. Single live intrauterine with an estimated gestational age 20 weeks 3 days AUGUSTINE 9. 1. Breech presentation. 3. Normal amniotic fluid. 4. No evidence of a retroplacental/subchorionic bleed. 5. A four-chamber heart not clearly seen. It is recommended that the patient have a follow-up ultraso und of the heart for further evaluation. 6. Higinio Cutler of the emergency room was notified 925AM on October 29, 2018.
--- NOTE | 2018-11-02 11:23 | EKG ---
Test Date: 2018-10-28 Test Time: 20:49:47 Fixed Capital Clerk: KIKE MEASUREMENT RESULTS: Intervals: Rate: 81 AL: 148 QRSD: 80 QT: 358 QTc: 415 [place]: P: 64 AL: 148 QRS: 26 T: 31 INTERPRETIVE STATEMENTS: Normal sinus rhythm Normal ECG Compared to ECG 03/25/2018 12:09:04 Sinus arrhythmia no longer present ST (T wave) deviation no longer present Electronically Signed On 10-29-18 09:51:29 CDT by Howard Rodriguez
== END 2018-10-28 22:48 | disposition home or self-care (01) ==
LOC: ER 18:51
DX: O26.892 Other specified pregnancy related conditions, second trimester (principal); Z3A.19 19 weeks gestation of pregnancy; R55 Syncope and collapse
CPT/HCPCS: 36415; 76805; 81003; 81015; 81025; 84702; 86850; 86900; 86901; 87077; 87086; 87088; 87186; 93005; 96374; 99284; J0696

== ENCOUNTER 2018-11-02 14:04 | Emergency (ER) | payer OTHER ==
--- OUTSIDE RECORDS SUMMARY | 2018-11-02 14:06 | XMS REPORT ---
:1990 Author Organization [facility] Address [address] [place] [address] Care Team Providers Name Role Phone Unavailable Unavailable Unavailable Problems This patient has no known problems. Allergies, Adverse Reactions, Alerts This patient has no known allergies or adverse reactions. Medications This patient has no known medications.
[2018-11-02] MEDS ORDERED: METOCLOPRAMIDE 10 MG/2mL INJ ONE (15:11)
[2018-11-02] MEDS ORDERED: DIPHENHYDRAMINE 50 MG/ML VIAL ONE (15:11)
[2018-11-02] MEDS ORDERED: NA CHLORIDE 0.9% 1,000 ML ONE (15:11)
[2018-11-02 15:19] LABS: Absolute Lymphocytes (CBC) 1.5 K/uL (0.7-4.9); Absolute Monocytes 0.6 K/uL (0.1-1.3); Absolute Neutrophil 7.5 K/uL (1.8-8.0); Basophils % 0.6 % (0-1.3); Eosinophils % 1.8 % (0-4.4); Hematocrit 32.4 % (36.0-45.0); Lymphocytes % 15.1 % (15.3-44.8); MPV 8.4 fL (7.6-11.3); Monocytes % 5.7 % (3.3-12.3); RBC Red Blood Cell Count 3.34 M/uL (3.86-4.86)
[2018-11-02 15:24] LABS: Urine Blood NEGATIVE (NEG); Urine Glucose NEGATIVE (NEG); Urine Protein NEGATIVE (NEG); Urine pH 7.5 (5.0-7.0)
[2018-11-02 15:31] LABS: BUN Blood Urea Nitrogen 9 mg/dL (7-18); Bicarbonate 26 mmol/L (21-32); Glucose Level 86 mg/dL (74-106); Potassium 3.7 mmol/L (3.5-5.1); Sodium Level 140 mmol/L (136-145)
--- NOTE | 2018-11-02 16:30 | EDPHYS ---
Physician Documentation [facility] Name: Zaria Cleary Age: 28 yrs Sex: Female : 1990 Arrival Date: 11/02/2018 Time: 14:05 Bed 16 Private MD: ED Physician Agus Sena HPI: 11/02 16:15 This 28 yrs old Female presents to ER via Ambulatory with complaints of Near jr8 Syncope. 16:15 The patient has experienced near-syncope. Onset: The symptoms/episode began/occurred jr8 acutely, today. Duration: This was a single episode, that lasted 1 minute(s). Context: occurred outdoors, occurred while the patient was standing, Just prior to the episode the patient experienced no apparent symptoms. Associated injury: The patient did not suffer any apparent associated injury. Associated signs and symptoms: The patient has no apparent associated signs or symptoms. Current symptoms: Currently, the patient is not experiencing any symptoms, the patient feels back to baseline, no decreased level of consciousness, no confusion, no dysphasia, no headache, no paralysis, no visual changes. The patient has not experienced similar symptoms in the past. The patient has been recently seen by a physician:. Patient approximately 20 weeks . Stated that she was seen here the other day for near syncope. Today while moving became dizzy and felt that she was going to pass out. 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 - Social history:: Smoking status: Patient/guardian denies using tobacco. - Ebola Screening: : No symptoms or risks identified at this time. ROS: 16:15 Eyes: Negative for injury, pain, redness, and discharge, ENT: Negative for injury, jr8 pain, and discharge, Neck: Negative for injury, pain, and swelling, Cardiovascular: Negative for chest pain, palpitations, and edema, Respiratory: Negative for shortness of breath, cough, wheezing, and pleuritic chest pain, Abdomen/GI: Negative for abdominal pain, nausea, vomiting, diarrhea, and constipation, Back: Negative for injury and pain, MS/Extremity: Negative for injury and deformity, Skin: Negative for injury, rash, and discoloration. 16:15 Neuro: Positive for dizziness, headache, near syncope. Exam: 16:15 Head/Face: Normocephalic, atraumatic. Eyes: Pupils equal round and reactive to light, jr8 extra-ocular motions intact. Lids and lashes normal. Conjunctiva and sclera are non-icteric and not injected. Cornea within normal limits. Periorbital areas with no swelling, redness, or edema. ENT: Nares patent. No nasal discharge, no septal abnormalities noted. Tympanic membranes are normal and external auditory canals are clear. Oropharynx with no redness, swelling, or masses, exudates, or evidence of obstruction, uvula midline. Mucous membranes moist. Neck: Trachea midline, no thyromegaly or masses palpated, and no cervical lymphadenopathy. Supple, full range of motion without nuchal rigidity, or vertebral point tenderness. No Meningismus. Cardiovascular: Regular rate and rhythm with a normal S1 and S2. No gallops, murmurs, or rubs. Normal PMI, no JVD. No pulse deficits. Respiratory: Lungs have equal breath sounds bilaterally, clear to auscultation and percussion. No rales, rhonchi or wheezes noted. No increased work of breathing, no retractions or nasal flaring. Abdomen/GI: Soft, non-tender, with normal bowel sounds. No distension or tympany. No guarding or rebound. No evidence of tenderness throughout. Gravid appearance Back: No spinal tenderness. No costovertebral tenderness. Full range of motion. Skin: Warm, dry with normal turgor. Normal color with no rashes, no lesions, and no evidence of cellulitis. MS/ Extremity: Pulses equal, no cyanosis. Neurovascular intact. Full, normal range of motion. Neuro: Awake and alert, GCS 15, oriented to person, place, time, and situation. Cranial nerves II-XII grossly intact. Motor strength 5/5 in all extremities. Sensory grossly intact. Cerebellar exam normal. Normal gait. Vital Signs: 14:12 BP 120 / 91; Pulse 88; Resp 18 S; Temp 97.2(TE); Pulse Ox 100% on R/A; Weight 68.49 kg aa5 (R); Height 5 ft. 5 in. (165.10 cm) (R); Pain 9/10; 14:56 BP 108 / 71 Supine; Pulse 90; Resp 17; Pulse Ox 99% on R/A; tw2 14:56 BP 106 / 67 Sitting; Pulse 93; tw2 14:56 BP 115 / 69 Standing; Pulse 98; tw2 16:23 BP 91 / 59; Pulse 82; Resp 17; Pulse Ox 99% on R/A; tw2 14:12 Body Mass Index 25.13 (68.49 kg, 165.10 cm) aa5 MDM: 14:27 Patient medically screened. 8 16:15 ECG was reviewed by the Attending Physician. Data reviewed: vital signs, nurses notes, [facility] lab test result(s), EKG, and as a result, I will discharge patient. Data interpreted: Pulse oximetry: on room air is 99 %. Interpretation: normal. Counseling: I had a detailed discussion with the patient and/or guardian regarding: the historical points, exam findings, and any diagnostic results supporting the discharge/admit diagnosis, lab results, the need for outpatient follow up, a family practitioner, an OB/Gyne specialist, to return to the emergency department if symptoms worsen or persist or if there are any questions or concerns that arise at home. 11/02 14:52 Order name: CBC with Diff; Complete Time: 16:14 11/02 14:52 Order name: Basic Metabolic Panel; Complete Time: 16:14 11/02 15:20 Order name: Urine Dipstick--Ancillary (enter results); Complete Time: 16:14 11/02 15:20 Order name: Urine --Ancillary (enter results); Complete Time: 16:14 bd 11/02 14:52 Order name: Orthostatics; Complete Time: 14:55 11/02 14:52 Order name: Urine Dipstick-Ancillary (obtain specimen); Complete Time: 15:17 11/02 14:52 Order name: IV; Complete Time: 15:17 11/02 14:52 Order name: EKG - Nurse/Tech; Complete Time: 14:57 11/02 14:52 Order name: EKG; Complete Time: 14:52 jr8 EC:15 Rate is 86 beats/min. Rhythm is regular, Sinus Rhythm. QRS [place] is Normal. [place] interval jr8 is normal at 144 msec. QRS interval is normal at 78 msec. QT interval is normal at 410 msec. No Q waves. T waves are Normal. No ST changes noted. Clinical impression: Normal ECG. Interpreted by me. Reviewed by me. Administered Medications: 15:15 Drug: Benadryl 25 mg Route: IVP; Site: left antecubital; tw2 16:25 Follow up: Response: No adverse reaction; Pain is decreased tw2 15:17 Drug: NS 0.9% 1000 ml Route: IV; Rate: 1000 ml; Site: left antecubital; tw2 16:25 Follow up: Response: No adverse reaction; IV Status: Completed infusion; IV Intake: tw2 1000ml 15:17 Drug: Reglan 10 mg Route: IVP; Site: left antecubital; tw2 16:25 Follow up: Response: No adverse reaction; Pain is decreased tw2 Disposition: 16:40 Co-signature as Attending Physician, Agus Sena MD. rn Disposition: 11/02/18 16:30 Discharged to Home. Impression: Migraine, Near Syncope. - Condition is Stable. - Discharge Instructions: Migraine Headache. - Medication Reconciliation Form, Thank You Letter, Antibiotic Education, Prescription Opioid Use, Work release form form. - Follow up: Private Physician; When: 2 - 3 days; Reason: Recheck today's complaints, Continuance of care, Re-evaluation by your physician. - Problem is new. - Symptoms are resolved. Signatures: Dispatcher [employer] EDAgus Son MD MD rn Calderon, Audri RN RN aa5 Higinio Cutler PA PA jr8 Katerina Farmer RN RN tw2 Corrections: (The following items were deleted from the chart) 16:37 16:30 11/02/2018 16:30 Discharged to Home. Impression: Migraine; Near Syncope. tw2 Condition is Stable. Forms are Work release form, Medication Reconciliation Form, Thank You Letter, Antibiotic Education, Prescription Opioid Use. Follow up: Private Physician; When: 2 - 3 days; Reason: Recheck today's complaints, Continuance of care, Re-evaluation by your physician. Problem is new. Symptoms are resolved. jr8
--- NOTE | 2018-11-02 16:30 | ER ---
Nurse's Notes [facility] Name: Zaria Cleary Age: 28 yrs Sex: Female : 1990 Arrival Date: 11/02/2018 Time: 14:05 Bed 16 Private MD: Diagnosis: Migraine;Near Syncope Presentation: 11/02 14:07 Presenting complaint: Patient states: "I have a migraine and I was at work and when I aa5 looked at the brightness of the sun I just fell over but there was a car so I held on to it but I felt like I was going to faint". Pt reports previous syncopal episode. Pt reports being 20 weeks . Transition of care: patient was not received from another setting of care. Onset of symptoms was November 02, 2018. Risk Assessment: Do you want to hurt yourself or someone else? Patient reports no desire to harm self or others. Initial Sepsis Screen: Does the patient meet any 2 criteria? No. Patient's initial sepsis screen is negative. Does the patient have a suspected source of infection? No. Patient's initial sepsis screen is negative. Care prior to arrival: None. 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 - Social history:: Smoking status: Patient/guardian denies using tobacco. - Ebola Screening: : No symptoms or risks identified at this time. Screenin:21 Abuse screen: Denies threats or abuse. Nutritional screening: No deficits noted. tw2 Tuberculosis screening: No symptoms or risk factors identified. Fall Risk None identified. Assessment: 15:12 General: Appears in no apparent distress. Behavior is calm, cooperative, appropriate tw2 for age. Pain: Complains of pain in headache. Neuro: Level of Consciousness is awake, alert, obeys commands, Oriented to person, place, time, situation, Reports headache photophobia. Cardiovascular: Heart tones S1 S2 Patient's skin is warm and dry. Respiratory: Airway is patent Respiratory effort is even, unlabored, Respiratory pattern is regular, symmetrical, Breath sounds are clear bilaterally. GI: No signs and/or symptoms were reported involving the gastrointestinal system. Abdomen is round non-distended, Bowel sounds present X 4 quads. Reports + movement. : No signs and/or symptoms were reported regarding the genitourinary system. EENT: No signs and/or symptoms were reported regarding the EENT system. Derm: No signs and/or symptoms reported regarding the dermatologic system. Musculoskeletal: No deficits noted. Range of motion: intact in all extremities. 15:22 Reassessment: Patient appears in no apparent distress at this time. No changes from tw2 previously documented assessment. Patient and/or family updated on plan of care and expected duration. Pain level reassessed. Patient is alert, oriented x 3, equal unlabored respirations, skin warm/dry/pink. 16:21 Reassessment: Patient appears in no apparent distress at this time. Patient and/or tw2 family updated on plan of care and expected duration. Pain level reassessed. Patient is alert, oriented x 3, equal unlabored respirations, skin warm/dry/pink. Patient states feeling better. Patient states symptoms have improved. Vital Signs: 14:12 BP 120 / 91; Pulse 88; Resp 18 S; Temp 97.2(TE); Pulse Ox 100% on R/A; Weight 68.49 kg aa (R); Height 5 ft. 5 in. (165.10 cm) (R); Pain 9/10; 14:56 BP 108 / 71 Supine; Pulse 90; Resp 17; Pulse Ox 99% on R/A; tw2 14:56 BP 106 / 67 Sitting; Pulse 93; tw2 14:56 BP 115 / 69 Standing; Pulse 98; tw2 16:23 BP 91 / 59; Pulse 82; Resp 17; Pulse Ox 99% on R/A; tw2 14:12 Body Mass Index 25.13 (68.49 kg, 165.10 cm) [facility] ED Course: 14:05 Patient arrived in ED. as 14:07 Arm band placed on. [facility] 14:10 Triage completed. [facility] 14:13 Bed in low position. Call light in reach. Adult w/ patient. 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 Pulse tw2 ox on. NIBP on. Door closed. Lights dimmed. 14:20 Katerina Farmer RN is Primary Nurse. tw2 14:27 Higinio Cutler PA is PHCP. jr8 14:27 Agus Sena MD is Attending Physician. jr8 15:05 Inserted saline lock: 22 gauge in left antecubital area, using aseptic technique. Blood tw2 collected. 15:11 EKG done, by certified medical technician assistant. reviewed by Higinio GASTELUM. sm3 16:36 No provider procedures requiring assistance completed. IV discontinued, intact, tw2 bleeding controlled, No redness/swelling at site. Pressure dressing applied. Administered Medications: 15:15 Drug: Benadryl 25 mg Route: IVP; Site: left antecubital; tw2 16:25 Follow up: Response: No adverse reaction; Pain is decreased tw2 15:17 Drug: NS 0.9% 1000 ml Route: IV; Rate: 1000 ml; Site: left antecubital; tw2 16:25 Follow up: Response: No adverse reaction; IV Status: Completed infusion; IV Intake: tw2 1000ml 15:17 Drug: Reglan 10 mg Route: IVP; Site: left antecubital; tw2 16:25 Follow up: Response: No adverse reaction; Pain is decreased tw2 Intake: 16:25 IV: 1000ml; Total: 1000ml. tw2 Outcome: 16:30 Discharge ordered by . jr8 16:36 Discharged to home ambulatory, with family. tw2 16:36 Condition: stable 16:36 Discharge instructions given to patient, family, Instructed on discharge instructions, follow up and referral plans. Demonstrated understanding of instructions, follow-up care. 16:37 Patient left the ED. tw2 Signatures: Nidhi Mason Audri RN RN aa5 Higinio Cutler PA PA jr8 Katerina Farmer RN RN tw2 Linda Valenzuela 3 Corrections: (The following items were deleted from the chart) 14:12 14:07 Presenting complaint: Patient states: "I have a migraine and I was at work and aa5 when I looked at the brightness of the sun I just fell over but there was a car so I held on to it but I felt like I was going to faint". Pt reports previous syncopal episode. aa5
[2018-11-02 16:45] VITALS: TEMP 97.2
[2018-11-02 16:47] VITALS: O2SAT 99
[2018-11-02 16:48] VITALS: BP 91/59
== END 2018-11-02 16:37 | disposition home or self-care (01) ==
LOC: ER 14:04
DX: G43.909 Migraine, unspecified, not intractable, without status migrainosus (principal); R55 Syncope and collapse; Z33.1 Pregnant state, incidental
CPT/HCPCS: 36415; 80048; 81003; 81025; 85025; 93005; 96361; 96374; 96375; 99284; J2765; J7030

== ENCOUNTER 2024-04-11 08:15 | Emergency (ER) | payer BC, OTHER ==
--- NOTE | 2024-04-11 08:26 | ER ---
Nurse's Notes [facility] Name: Zaria Cleary Age: 33 yrs Sex: Female : 1990 Arrival Date: 04/11/2024 Time: 08:15 Bed 19 Private MD: Diagnosis: Preseptal cellulitis, left;Unspecified acute conjunctivitis, left eye Presentation: 04/11 08:22 Chief complaint: Patient states: Redness and swelling of left eye. Coronavirus screen: rs5 At this time, the client does not indicate any symptoms associated with coronavirus-19. Ebola Screen: No symptoms or risks identified at this time. Initial Sepsis Screen: Does the patient meet any 2 criteria? No. Patient's initial sepsis screen is negative. Does the patient have a suspected source of infection? No. Patient's initial sepsis screen is negative. Risk Assessment: Do you want to hurt yourself or someone else? Patient reports no desire to harm self or others. Onset of symptoms was April 11, 2024. 08:22 Method Of Arrival: Ambulatory rs5 08:22 Acuity: MEL 4 rs5 Historical: - Allergies: 08:20 No Known Drug Allergies; ll1 - PMHx: 08:20 Asthma; Migraines; ll1 - Immunization history:: Adult Immunizations up to date. - Infectious Disease History:: Denies. - Social history:: Smoking status: Patient denies any tobacco usage or history of. Screenin:24 [facility] ED Fall Risk Assessment (Adult) History of falling in the last 3 months, rs5 including since admission No falls in past 3 months (0 pts) Confusion or Disorientation No (0 pts) Intoxicated or Sedated No (0 pts) Impaired Gait No (0 pts) Mobility Assist Device Used No (0 pt) Altered Elimination No (0 pt) Score/Fall Risk Level 0 - 2 = Low Risk Oriented to surroundings, Maintained a safe environment. Abuse screen: Denies threats or abuse. Nutritional screening: No deficits noted. Tuberculosis screening: No symptoms or risk factors identified. Assessment: 08:24 General: Appears in no apparent distress. uncomfortable, Behavior is calm, cooperative. rs5 Pain: Denies pain. Neuro: Level of Consciousness is awake, alert, obeys commands, Oriented to person, place, time, situation. Cardiovascular: Patient's skin is warm and dry. Respiratory: Airway is patent Respiratory effort is even, unlabored, Respiratory pattern is regular, symmetrical. GI: Abdomen is round non-distended, Abd is soft and non tender X 4 quads. : No signs and/or symptoms were reported regarding the genitourinary system. EENT: Eyes redness and swelling of left eye. Derm: Skin is intact, Skin is pink, warm \T\ dry. Musculoskeletal: Range of motion: intact in all extremities. 08:35 Reassessment: Patient and/or family updated on plan of care and expected duration. Pain rs5 level reassessed. Patient is alert, oriented x 3, equal unlabored respirations, skin warm/dry/pink. Vital Signs: 08:22 BP 125 / 79; Pulse 80; Resp 17; Temp 97.9(O); Pulse Ox 99% ; rs5 08:25 BP 127 / 77; Pulse 71; Resp 17; Pulse Ox 99% on R/A; rs5 ED Course: 08:18 Patient arrived in ED. ra3 08:19 Elli Harrison PA-C is PHCP. sb4 08:19 Agus Sena MD is Attending Physician. sb4 08:19 Roddy Bronson RN is Primary Nurse. rs5 08:20 Arm band placed on Patient placed in an exam room, on a stretcher. ll1 08:23 Triage completed. rs5 08:24 Cornelius Stern MD is Referral Physician. sb4 08:24 Patient has correct armband on for positive identification. Placed in gown. Bed in low rs5 position. Call light in reach. Side rails up X2. 08:24 No provider procedures requiring assistance completed. rs5 16:35 Patient did not have IV access during this emergency room visit. rs5 Administered Medications: No medications were administered Medication: 08:25 VIS not applicable for this client. rs5 Outcome: 08:25 Discharge ordered by . sb4 08:36 Patient left the ED. rs5 16:35 Discharged to home ambulatory, rs5 16:35 Condition: stable rs5 16:35 Discharge instructions given to patient, family, Instructed on discharge instructions, follow up and referral plans. medication usage, Demonstrated understanding of instructions, follow-up care, medications, Prescriptions given X 2, Signatures: Edilia Cruz RN RN ll1 Brown, Elli, PA-C PA-C sb4 Roddy Bronson, RN RN rs5 Kathryn Zavala ra3
--- NOTE | 2024-04-11 08:26 | EDPHYS ---
Physician Documentation [facility] Name: Zaria Cleary Age: 33 yrs Sex: Female : 1990 Arrival Date: 04/11/2024 Time: 08:15 Bed 19 Private MD: ED Physician Agus Sena HPI: 04/11 08:28 This 33 yrs old Female presents to ER via Ambulatory with complaints of sb4 Redness of Eye. 08:28 The patient is experiencing burning, pain, redness, tearing, The patient sustained sb4 None. to the left eye, caused by an unknown mechanism. Onset: The symptoms/episode began/occurred 3 day(s) ago. Duration: the symptoms are continuous. Aggravated by opening eye, Alleviated by cold application. Associated signs and symptoms: Pertinent negatives: chills, dizziness, ear ache, fever, headache, runny nose. Patient does not utilize any form of vision correction. The patient has not experienced similar symptoms in the past. The patient has not recently seen a physician. Historical: - Allergies: 08:20 No Known Drug Allergies; ll1 - PMHx: 08:20 Asthma; Migraines; ll1 - Immunization history:: Adult Immunizations up to date. - Infectious Disease History:: Denies. - Social history:: Smoking status: Patient denies any tobacco usage or history of. ROS: 08:28 Constitutional: Negative for fever, chills, and weight loss, sb4 08:28 Eyes: Positive for discharge, itching, pain, redness, swelling, tearing, 08:28 All other systems are negative, Exam: 08:28 Visual Acuity: Visual acuity is within normal limits. sb4 08:28 Constitutional: This is a well developed, well nourished patient who is awake, alert, and in no acute distress. Head/Face: Normocephalic, atraumatic. ENT: Mucous membranes moist. Skin: Warm, dry with normal turgor. Normal color with no rashes, no lesions, and no evidence of cellulitis. 08:28 Eyes: Periorbital structures: erythema, that is mild, on the left upper eyelid and left lower eyelid, swelling, that is mild, on the left upper eyelid and left lower eyelid, Pupils: equal, round, and reactive to light and accomodation, Extraocular movements: intact throughout, Conjunctiva: injected, in the left eye, Lids and lashes: appear normal, bilaterally, Vital Signs: 08:22 BP 125 / 79; Pulse 80; Resp 17; Temp 97.9(O); Pulse Ox 99% ; rs5 08:25 BP 127 / 77; Pulse 71; Resp 17; Pulse Ox 99% on R/A; rs5 MDM: 08:19 Patient medically screened. sb4 08:30 Data reviewed: vital signs, nurses notes, and as a result, I will discharge patient. sb4 Counseling: I had a detailed discussion with the patient and/or guardian regarding the historical points, exam findings, and any diagnostic results supporting the discharge/admit diagnosis, the need for outpatient follow up, an opthalmologist, to return to the emergency department if symptoms worsen or persist or if there are any questions or concerns that arise at home. Administered Medications: No medications were administered Disposition: 09:11 Co-signature as Attending Physician, Agus Sena MD I reviewed the patient's care rn provided by the Advanced Practice Provider and agree with the diagnosis and treatment plan. Disposition Summary: 04/11/24 08:25 Discharge Ordered Notes: Location: Home sb4 Problem: new sb4 Symptoms: are unchanged sb4 Condition: Stable sb4 Diagnosis - Preseptal cellulitis, left sb4 - Unspecified acute conjunctivitis, left eye sb4 Followup: sb4 - With: Cornelius Stern MD - When: 1 week - Reason: Recheck today's complaints, Re-evaluation by your physician Discharge Instructions: - Discharge Summary Sheet sb4 - Bacterial Conjunctivitis, Adult sb4 - Preseptal Cellulitis, Adult sb4 Forms: - Antibiotic Education sb4 - Patient Portal Instructions sb4 - Leadership Thank You Letter sb4 Prescriptions: - ofloxacin 0.3 % Ophthalmic drops - instill 2 drop OPHTHALMIC route every 6 hours for 7 days; 1 Applicator; sb4 Refills: 0, Product Selection Permitted - Augmentin 875-125 mg Oral Tablet - take 1 tablet ORAL route every 12 hours for 10 days; 20 tablet; Refills: 0, sb4 Product Selection Permitted Signatures: Agus Sena MD MD rn Lewis, Lynsay, RN RN ll1 Elli Harrison PA-C PA-C sb4 Roddy Bronson RN RN rs5
[2024-04-11 08:40] VITALS: TEMP 97.9; O2SAT 99
[2024-04-11 08:41] VITALS: BP 127/77
== END 2024-04-11 08:36 | disposition home or self-care (01) ==
LOC: ER 08:15
DX: L03.213 Periorbital cellulitis (principal); H10.32 Unspecified acute conjunctivitis, left eye
CPT/HCPCS: 99283